=== PATIENT | female | born 1970 | race Caucasian/White ===

== ENCOUNTER 2020-08-31 20:14 | Inpatient (IN) | payer MEDICAID, OTHER, SELFPAY ==
[~2020-08-31] VITALS: Ht 162.6 cm; Wt 69.5 kg
--- NOTE | 2020-08-31 20:53 | NUR ---
Provider at bedside.
[2020-08-31] MEDS ORDERED: CHLORDIAZEPOXIDE 25 MG CAPSULE ONE (21:09)
[2020-08-31] MEDS ORDERED: CHLORDIAZEPOXIDE 25 MG CAPSULE PO PRN (21:30)
--- NOTE | 2020-08-31 21:30 | NUR ---
Pt.'s daughter called- this RN gave her update over the phone per pt. permission.
--- NOTE | 2020-08-31 21:56 | NUR ---
Completed MRI screen sheet and faxed to [phone]
[2020-08-31] MEDS ORDERED: PLEASE ENTER ALLERGIES MC SCH (22:00)
[2020-08-31] MEDS ORDERED: POLYETHYLENE GLYCOL 17 GM PACKET PO PRN (22:30)
[2020-08-31] MEDS ORDERED: DOCUSATE 100 MG CAPSULE PO PRN (22:30)
[2020-08-31] MEDS ORDERED: ONDANSETRON ODT 4 MG PO PRN (22:30)
[2020-08-31] MEDS ORDERED: LORazepam 2 MG/ML, 1ML IVPush PRN (22:30)
[2020-08-31] MEDS ORDERED: hydrALAzine 20 MG/ML, 1ML IVPush PRN (22:30)
[2020-08-31] MEDS ORDERED: BISACODYL 10 MG SUPP PR PRN (22:30)
[2020-08-31] MEDS ORDERED: morphine SULFATE 10 MG/ML, 1ML IVPush PRN (22:30)
[2020-08-31] MEDS ORDERED: PROMETHAZINE 25 MG/ML, 1ML IM PRN (22:30)
--- NOTE | 2020-08-31 22:33 | NUR ---
pt reports "i drink every other day a few glasses and get a little crazy on the weekends". [facility], appears comfortable. report called to beti jorge.
[2020-08-31] MEDS ORDERED: LORazepam 0.5MG TABLET PO PRN (23:00)
[2020-08-31] MEDS ORDERED: LORazepam 2 MG/ML, 1ML IV PRN ×5 (23:00)
[2020-08-31] MEDS ORDERED: LORazepam 1MG TABLET PO PRN ×3 (23:00)
--- NOTE | 2020-08-31 23:18 | NUR ---
Report called. Pt being transported to inpatient room.
[2020-08-31 23:30] VITALS: BP 124/83
[2020-08-31] MEDS ORDERED: LISI-420 PO (23:57)
[2020-08-31] MEDS ORDERED: SERT-237 PO (23:57)
[2020-09-01] MEDS: D5%-0.45% NACL 1,000 ML IV SCH ×2 (00:33→08:11)
[2020-09-01] MEDS: PANTOPRAZOLE 40 MG IV IVPush SCH ×2 (00:33→12:18)
[2020-09-01] MEDS: OXYcodone IR 5MG TABLET PO PRN (00:34)
[2020-09-01 01:05] VITALS: BP 114/75
[2020-09-01] MEDS: NICOTINE 7 MG/24 HR PATCH.TD24 TD SCH (01:13)
[2020-09-01] MEDS: LORazepam 1MG TABLET PO PRN ×4 (04:13→17:08)
[2020-09-01] MEDS: ONDANSETRON 2MG/ML, 2ML IVPush PRN (04:14)
[2020-09-01 05:30] LABS: CHLORIDE 100 mmol/L (98-107)
[2020-09-01 05:45] LABS: ALANINE AMINOTRANSFERASE 34 U/L (12-78); ALKALINE PHOSPHATASE 583 U/L (45-117); ANION GAP 8 mmol/L (5-15); BILIRUBIN,TOTAL 5.1 mg/dL (0.2-1.0); CALCIUM 7.2 mg/dL (8.5-10.1); CHOL/HDL RATIO 14.9; CHOLESTEROL, TOTAL 149 mg/dL (140-239); CREATININE 0.49 mg/dL (0.55-1.02); HDL CHOL % 7 % (28-40); HDL CHOLESTEROL (DIRECT) 10 mg/dL (40-60); LDL CHOLESTEROL,CALCULATED 102 mg/dL (54-169); LDL/HDL RATIO 10.2 (0.5-3.0); TOTAL PROTEIN 5.5 g/dL (6.4-8.2); TRIGLYCERIDES 185 mg/dL (50-200); VLDL CHOLESTEROL 37 mg/dL (0-25)
[2020-09-01 06:51] LABS: BASOPHILS % (AUTO) 1 % (0-1); EOSINOPHILS % (AUTO) 1 % (1-7); LYMPHOCYTES % (AUTO) 9 % (22-44); MEAN CORPUSCULAR HEMOGLOBIN 35.5 pg (27.0-34.8); MEAN CORPUSCULAR HGB CONC 34.5 g/dL (32.4-35.8); MEAN PLATELET VOLUME 9.8 fL (7.4-10.4); MONOCYTES % (AUTO) 6 % (2-9); NEUTROPHILS % (AUTO) 83 % (42-75); PLATELET COUNT 66 x10^3/uL (130-400); RED BLOOD COUNT 3.25 x10^6/uL (3.82-5.3); RED CELL DISTRIBUTION WIDTH 14.2 % (9.6-15.2)
[2020-09-01 07:20] LABS: ANISOCYTOSIS 1+; MD MORPH REVIEW ONLY; TARGET CELLS 1+
[2020-09-01 07:21] LABS: <PLATELET ESTIMATE> DECREASED; <PLT MORPHOLOGY> NORMAL PLT MORPH
[2020-09-01 07:33] VITALS: BP 133/86
[2020-09-01] MEDS: LISINOPRIL 10 MG TABLET PO SCH (08:11)
[2020-09-01] MEDS: SERTRALINE 50MG TABLET PO SCH (08:11)
[2020-09-01] MEDS: CEFTRIAXONE PMX 2GM/50ML 50 ML IVPB SCH (12:19)
[2020-09-01] MEDS ORDERED: MAGNESIUM SULFATE PMX 2GM/50ML 50 ML IV ONE (13:30)
[2020-09-01 13:42] LABS: INTERNATIONAL NORMALIZED RATIO 1.55 (0.93-1.1); PROTHROMBIN TIME 16.4 Seconds (9.6-11.5)
[2020-09-01 13:51] LABS: C-REACTIVE PROTEIN, QUANT 2.4 mg/dL (0.02-0.49)
[2020-09-01 14:30] VITALS: BP 107/72
[2020-09-01 19:47] VITALS: BP 123/86
[2020-09-02] MEDS: PANTOPRAZOLE 40 MG IV IVPush SCH ×2 (00:23→12:36)
[2020-09-02] MEDS: NICOTINE 7 MG/24 HR PATCH.TD24 TD SCH (00:24)
[2020-09-02 00:59] VITALS: BP 113/75
[2020-09-02 04:56] LABS: ANION GAP 7 mmol/L (5-15); CALCIUM 7.4 mg/dL (8.5-10.1); CHLORIDE 98 mmol/L (98-107); CREATININE 0.58 mg/dL (0.55-1.02)
[2020-09-02 06:53] VITALS: BP 110/74
[2020-09-02] MEDS ORDERED: LABETALOL 5MG/ML, 20ML IV PRN (08:00)
[2020-09-02] MEDS ORDERED: morphine SULFATE 10 MG/ML, 1ML IVPush PRN (08:00)
[2020-09-02] MEDS ORDERED: OXYcodone 5 MG/5 ML ORAL.SOL UDC PO PRN (08:00)
[2020-09-02] MEDS ORDERED: PROMETHAZINE 25 MG/ML, 1ML IVPush PRN (08:00)
[2020-09-02] MEDS ORDERED: ONDANSETRON 2MG/ML, 2ML IVPush PRN (08:00)
[2020-09-02] MEDS ORDERED: FENTANYL PF 100 MCG/2ML IV PRN (08:00)
[2020-09-02] MEDS ORDERED: hydrALAzine 20 MG/ML, 1ML IV PRN (08:00)
[2020-09-02] MEDS ORDERED: POTASSIUM PHOSPHATE 44 MEQ in SODIUM CHLORIDE 0.9% 500 ML IV ONE (08:30)
[2020-09-02] MEDS ORDERED: CHLORHEXIDINE 15 ML UDC ONE (08:30)
[2020-09-02] MEDS ORDERED: MIDAZOLAM 1 MG/ML, 2ML ONE (08:49)
[2020-09-02] MEDS ORDERED: FENTANYL PF 100 MCG/2ML ONE (08:49)
[2020-09-02] MEDS ORDERED: PROPOFOL 10 MG/ML, 20ML ONE (08:50)
[2020-09-02] MEDS: SERTRALINE 50MG TABLET PO SCH (10:50)
[2020-09-02] MEDS: LISINOPRIL 10 MG TABLET PO SCH (10:50)
[2020-09-02] MEDS: LACTULOSE 20 GM/30 ML UDC PO SCH ×2 (10:51→20:52)
[2020-09-02] MEDS: CEFTRIAXONE PMX 2GM/50ML 50 ML IVPB SCH (12:34)
[2020-09-02] MEDS: OXYcodone IR 5MG TABLET PO PRN (12:35)
[2020-09-02 13:01] VITALS: BP 114/75
[2020-09-02 20:00] VITALS: BP 106/71
[2020-09-03] MEDS: NICOTINE 7 MG/24 HR PATCH.TD24 TD SCH (01:40)
[2020-09-03 02:45] VITALS: BP 103/69
[2020-09-03] MEDS: PANTOPRAZOLE 40MG TABLET PO SCH ×2 (05:14→15:35)
[2020-09-03] MEDS: OXYcodone IR 5MG TABLET PO PRN (05:15)
[2020-09-03 06:20] LABS: BASOPHILS % (AUTO) 1 % (0-1); EOSINOPHILS % (AUTO) 2 % (1-7); LYMPHOCYTES % (AUTO) 12 % (22-44); MEAN CORPUSCULAR HEMOGLOBIN 36.4 pg (27.0-34.8); MEAN PLATELET VOLUME 10.6 fL (7.4-10.4); MONOCYTES % (AUTO) 9 % (2-9); NEUTROPHILS % (AUTO) 77 % (42-75); PLATELET COUNT 100 x10^3/uL (130-400); RED BLOOD COUNT 2.91 x10^6/uL (3.82-5.3); RED CELL DISTRIBUTION WIDTH 14.4 % (9.6-15.2)
[2020-09-03 06:23] LABS: INTERNATIONAL NORMALIZED RATIO 1.84 (0.93-1.1); PROTHROMBIN TIME 19.4 Seconds (9.6-11.5)
[2020-09-03 06:26] LABS: ALBUMIN 1.9 g/dL (3.4-5.0); ANION GAP 10 mmol/L (5-15); CALCIUM 7.4 mg/dL (8.5-10.1); CHLORIDE 101 mmol/L (98-107)
[2020-09-03 06:30] LABS: ALANINE AMINOTRANSFERASE 29 U/L (12-78); ALKALINE PHOSPHATASE 474 U/L (45-117); BILIRUBIN, DIRECT 7.1 mg/dL (0.1-0.2); BILIRUBIN,INDIRECT 1.6 mg/dL (0.0-2.0); BILIRUBIN,TOTAL 8.7 mg/dL (0.2-1.0); CREATININE 0.56 mg/dL (0.55-1.02); TOTAL PROTEIN 5.4 g/dL (6.4-8.2)
[2020-09-03 06:36] LABS: MD NO
[2020-09-03 08:40] VITALS: BP 100/67
[2020-09-03] MEDS: LACTULOSE 20 GM/30 ML UDC PO SCH ×2 (08:50→23:12)
[2020-09-03] MEDS: SERTRALINE 50MG TABLET PO SCH (08:50)
[2020-09-03] MEDS: LISINOPRIL 10 MG TABLET PO SCH (08:50)
[2020-09-03] MEDS ORDERED: POTASSIUM PHOSPHATE 44 MEQ in SODIUM CHLORIDE 0.9% 500 ML IV ONE (09:00)
[2020-09-03] MEDS: ONDANSETRON 2MG/ML, 2ML IVPush PRN (10:14)
[2020-09-03] MEDS ORDERED: LACTATED RINGERS 1,000 ML IVBOLUS ONE (10:30)
[2020-09-03] MEDS: CEFTRIAXONE PMX 2GM/50ML 50 ML IVPB SCH (12:41)
[2020-09-03 15:20] VITALS: BP 103/68
[2020-09-03 19:34] VITALS: BP 106/72
[2020-09-04] MEDS: NICOTINE 7 MG/24 HR PATCH.TD24 TD SCH ×2 (00:24→23:09)
[2020-09-04 00:28] VITALS: BP 98/66
[2020-09-04] MEDS: PANTOPRAZOLE 40MG TABLET PO SCH ×2 (05:34→17:16)
[2020-09-04 07:20] VITALS: BP 103/70
[2020-09-04] MEDS: SERTRALINE 50MG TABLET PO SCH (08:51)
[2020-09-04] MEDS: LACTULOSE 20 GM/30 ML UDC PO SCH ×2 (08:51→21:00)
[2020-09-04] MEDS: LISINOPRIL 10 MG TABLET PO SCH (08:51)
[2020-09-04 10:09] LABS: BASOPHILS % (AUTO) 2 % (0-1); EOSINOPHILS % (AUTO) 2 % (1-7); LYMPHOCYTES % (AUTO) 14 % (22-44); MEAN CORPUSCULAR HEMOGLOBIN 36.1 pg (27.0-34.8); MEAN CORPUSCULAR HGB CONC 34.7 g/dL (32.4-35.8); MONOCYTES % (AUTO) 12 % (2-9); NEUTROPHILS % (AUTO) 70 % (42-75); PLATELET COUNT 143 x10^3/uL (130-400); RED BLOOD COUNT 2.97 x10^6/uL (3.82-5.3); RED CELL DISTRIBUTION WIDTH 14.1 % (9.6-15.2)
[2020-09-04 10:15] LABS: ALBUMIN 1.9 g/dL (3.4-5.0); ANION GAP 8 mmol/L (5-15); CALCIUM 7.4 mg/dL (8.5-10.1); CHLORIDE 100 mmol/L (98-107); CREATININE 0.53 mg/dL (0.55-1.02)
[2020-09-04 10:30] LABS: MD MORPH REVIEW ONLY
[2020-09-04 10:31] LABS: ANISOCYTOSIS 1+; TARGET CELLS 1+
[2020-09-04 10:32] LABS: <PLATELET ESTIMATE> ADEQUATE; <PLT MORPHOLOGY> NORMAL PLT MORPH; POLYCHROMASIA 1+
[2020-09-04 12:12] VITALS: BP 118/71
[2020-09-04] MEDS: CEFTRIAXONE PMX 2GM/50ML 50 ML IVPB SCH (13:18)
[2020-09-04] MEDS ORDERED: LIDOCAINE 1%, 10ML ONE (16:02)
[2020-09-04 20:25] VITALS: BP 106/71
[2020-09-04] MEDS: OXYcodone IR 5MG TABLET PO PRN (23:08)
[2020-09-05 02:18] VITALS: BP 100/69
[2020-09-05 05:59] LABS: BASOPHILS % (AUTO) 1 % (0-1); EOSINOPHILS % (AUTO) 3 % (1-7); LYMPHOCYTES % (AUTO) 15 % (22-44); MEAN CORPUSCULAR HEMOGLOBIN 36.1 pg (27.0-34.8); MEAN CORPUSCULAR HGB CONC 34.6 g/dL (32.4-35.8); MEAN PLATELET VOLUME 9.6 fL (7.4-10.4); MONOCYTES % (AUTO) 15 % (2-9); NEUTROPHILS % (AUTO) 67 % (42-75); PLATELET COUNT 187 x10^3/uL (130-400); RED BLOOD COUNT 3.02 x10^6/uL (3.82-5.3); RED CELL DISTRIBUTION WIDTH 14.2 % (9.6-15.2)
[2020-09-05 06:07] LABS: ALBUMIN 1.9 g/dL (3.4-5.0); ANION GAP 9 mmol/L (5-15); CALCIUM 7.6 mg/dL (8.5-10.1); CHLORIDE 99 mmol/L (98-107); CREATININE 0.46 mg/dL (0.55-1.02)
[2020-09-05] MEDS: PANTOPRAZOLE 40MG TABLET PO SCH ×2 (06:09→16:51)
[2020-09-05 06:40] LABS: MD SCAN
[2020-09-05 07:00] VITALS: BP 108/74
[2020-09-05] MEDS: LISINOPRIL 10 MG TABLET PO SCH (09:00)
[2020-09-05] MEDS: LACTULOSE 20 GM/30 ML UDC PO SCH ×2 (09:00→21:00)
[2020-09-05] MEDS: SERTRALINE 50MG TABLET PO SCH (09:00)
[2020-09-05] MEDS: ONDANSETRON 2MG/ML, 2ML IVPush PRN (09:11)
[2020-09-05] MEDS: CEFTRIAXONE PMX 2GM/50ML 50 ML IVPB SCH (15:34)
[2020-09-05] MEDS ORDERED: POTASSIUM CHLORIDE 20 MEQ TAB.ER.PRT PO ONE (16:30)
[2020-09-05 20:06] VITALS: BP 116/69
[2020-09-05 20:10] VITALS: BP 121/63
[2020-09-05] MEDS: NICOTINE 7 MG/24 HR PATCH.TD24 TD SCH (23:06)
[2020-09-06 02:05] VITALS: BP 118/68
[2020-09-06] MEDS: PANTOPRAZOLE 40MG TABLET PO SCH (06:39)
[2020-09-06 06:50] VITALS: BP 109/73
[2020-09-06] MEDS: LISINOPRIL 10 MG TABLET PO SCH (08:17)
[2020-09-06] MEDS: SERTRALINE 50MG TABLET PO SCH (08:17)
[2020-09-06] MEDS: LACTULOSE 20 GM/30 ML UDC PO SCH (08:17)
[2020-09-06] MEDS: OXYcodone IR 5MG TABLET PO PRN (08:20)
[2020-09-06 12:12] VITALS: BP 118/91
[2020-09-06] MEDS ORDERED: LACT20SO13 PO (12:18)
[2020-09-06] MEDS ORDERED: PANT40TA6 PO (12:18)
[2020-09-06] MEDS ORDERED: LORA-445 PO (12:18)
[2020-09-06] MEDS ORDERED: LISI-420 PO (12:18)
[2020-09-06] MEDS ORDERED: TRAM50TA2 PO (12:18)
[2020-09-06] MEDS: CEFTRIAXONE PMX 2GM/50ML 50 ML IVPB SCH (12:32)
== END 2020-09-06 14:20 | disposition home or self-care (01) | DRG 444 ==
LOC: ED 21:32 → EDIP 22:19 → 4NE 09-01 → DCLOUNGE 09-06 14:05
PROVIDERS: ADMIT Internal Medicine; ATTEND Internal Medicine
PROC: 0DB98ZX Excision of Duodenum, Via Natural or Artificial Opening Endoscopic, Diagnostic (ICD-10-PCS; principal; 2020-09-02 09:30)
DX: K80.62 Calculus of gallbladder and bile duct with acute cholecystitis without obstruction (principal); K85.20 Alcohol induced acute pancreatitis without necrosis or infection; F10.239 Alcohol dependence with withdrawal, unspecified; K92.1 Melena; K76.6 Portal hypertension; Z20.822 Contact with and (suspected) exposure to COVID-19; D64.9 Anemia, unspecified; D69.6 Thrombocytopenia, unspecified; E87.6 Hypokalemia; F17.210 Nicotine dependence, cigarettes, uncomplicated; F32.9 Major depressive disorder, single episode, unspecified; G89.29 Other chronic pain; I10 Essential (primary) hypertension; K21.00 Gastro-esophageal reflux disease with esophagitis, without bleeding; K29.20 Alcoholic gastritis without bleeding; J45.909 Unspecified asthma, uncomplicated; D72.829 Elevated white blood cell count, unspecified; K31.89 Other diseases of stomach and duodenum; K70.11 Alcoholic hepatitis with ascites; K70.31 Alcoholic cirrhosis of liver with ascites; Z82.49 Family history of ischemic heart disease and other diseases of the circulatory system; Z79.899 Other long term (current) drug therapy; Z79.891 Long term (current) use of opiate analgesic; Z79.01 Long term (current) use of anticoagulants; Z80.3 Family history of malignant neoplasm of breast; Z88.7 Allergy status to serum and vaccine; Z88.5 Allergy status to narcotic agent
CPT/HCPCS: 36415; 99285; J3490; 74181; 76705; 78227; 80053; 80061; 80069; 80074; 80076; 82140; 82977; 83036; 83690; 83735; 84100; 84443; 84703; 85025; 85610; 86140; 87635; 88305; 88312; G0378; J0696; J2250; J2405; J2704; J3010; A9537; C9113; J3475; J7040; J7120

== ENCOUNTER 2020-09-12 12:20 | Inpatient (IN) | payer MEDICAID, OTHER ==
[~2020-09-12] VITALS: Ht 162.6 cm; Wt 57.6 kg
[~2020-09-12 12:20] MED LIST: LACT20SO13 PO; LISI20TA21 PO; LORA-445 PO; PANT40TA6 PO; SERT-237 PO; TRAM50TA2 PO
--- NOTE | 2020-09-12 12:41 | NUR ---
PT SENT BY PCP- CHIEF COMPLAINT OF WORSENING JAUNDICE, ABD PAIN, ABD DISTENTION, N/V.
--- NOTE | 2020-09-12 13:06 | NUR ---
ULTRASOUND AT BEDSIDE
--- NOTE | 2020-09-12 13:12 | NUR ---
ULTRASOUND AT BEDSIDE
[2020-09-12 13:17] LABS: BASOPHILS % (AUTO) 1 % (0-1); EOSINOPHILS % (AUTO) 1 % (1-7); LYMPHOCYTES % (AUTO) 10 % (22-44); MEAN CORPUSCULAR HEMOGLOBIN 35.6 pg (27.0-34.8); MEAN CORPUSCULAR HGB CONC 34.2 g/dL (32.4-35.8); MEAN PLATELET VOLUME 7.5 fL (7.4-10.4); MONOCYTES % (AUTO) 7 % (2-9); NEUTROPHILS % (AUTO) 81 % (42-75); PLATELET COUNT 459 x10^3/uL (130-400); RED BLOOD COUNT 3.26 x10^6/uL (3.82-5.3); RED CELL DISTRIBUTION WIDTH 14.9 % (9.6-15.2)
[2020-09-12 13:20] LABS: MD NO
[2020-09-12 13:21] LABS: ALANINE AMINOTRANSFERASE 54 U/L (12-78); ALBUMIN 1.8 g/dL (3.4-5.0); ANION GAP 8 mmol/L (5-15); CHLORIDE 95 mmol/L (98-107); CREATININE 1.05 mg/dL (0.55-1.02)
[2020-09-12 13:23] LABS: ALKALINE PHOSPHATASE 403 U/L (45-117); BILIRUBIN,TOTAL 12.4 mg/dL (0.2-1.0); TOTAL PROTEIN 6.2 g/dL (6.4-8.2)
[2020-09-12 14:00] LABS: INTERNATIONAL NORMALIZED RATIO 1.64 (0.93-1.1); PROTHROMBIN TIME 17.3 Seconds (9.6-11.5)
[2020-09-12] MEDS ORDERED: POTASSIUM CHLORIDE 40 MEQ in SODIUM CHLORIDE 0.9% 500 ML IV ONE (14:00)
--- NOTE | 2020-09-12 14:21 | NUR ---
[facility]
[2020-09-12] MEDS ORDERED: PIPERACILLIN/TAZO/PMX 3.375GM 50 ML ONE (14:29)
[2020-09-12] MEDS ORDERED: SODIUM CHLORIDE 0.9% 1,000ML IVBOLUS ONE (14:30)
[2020-09-12] MEDS ORDERED: PIPERACILLIN/TAZO/PMX 3.375GM 50 ML IVPB ONE (14:30)
[2020-09-12] MEDS ORDERED: LIDOCAINE 1%, 10ML ONE (14:38)
--- NOTE | 2020-09-12 14:50 | NUR ---
PT TRANSPORTED TO IR.
--- NOTE | 2020-09-12 16:00 | NUR ---
Pt resting in bed, call light in reach. Urine collected
[2020-09-12 16:31] LABS: MICROSCOPIC INDICATED
--- NOTE | 2020-09-12 17:59 | NUR ---
REPOT TO Chad GIBSON
[2020-09-12] MEDS ORDERED: LORazepam 0.5MG TABLET PO PRN (18:00)
[2020-09-12] MEDS ORDERED: POLYETHYLENE GLYCOL 17 GM PACKET PO PRN (18:00)
[2020-09-12] MEDS ORDERED: NS + 20MEQ KCL 1,000 ML IV SCH (18:00)
[2020-09-12] MEDS ORDERED: BISACODYL 10 MG SUPP PR PRN (18:00)
[2020-09-12 18:39] VITALS: BP 105/72
[2020-09-12 20:18] VITALS: BP 101/59
[2020-09-12] MEDS: LACTULOSE 20 GM/30 ML UDC PO SCH (21:24)
[2020-09-12] MEDS: CEFTRIAXONE PMX 1GM/50ML 50 ML IV SCH (21:33)
[2020-09-13 00:34] VITALS: BP 104/73
[2020-09-13] MEDS: PANTOPRAZOLE 40MG TABLET PO SCH ×2 (05:24→16:52)
[2020-09-13 05:27] LABS: BASOPHILS % (AUTO) 1 % (0-1); EOSINOPHILS % (AUTO) 2 % (1-7); LYMPHOCYTES % (AUTO) 15 % (22-44); MEAN CORPUSCULAR HGB CONC 33.7 g/dL (32.4-35.8); MEAN PLATELET VOLUME 7.5 fL (7.4-10.4); MONOCYTES % (AUTO) 6 % (2-9); NEUTROPHILS % (AUTO) 77 % (42-75); PLATELET COUNT 447 x10^3/uL (130-400); RED BLOOD COUNT 3.31 x10^6/uL (3.82-5.3); RED CELL DISTRIBUTION WIDTH 15.1 % (9.6-15.2)
[2020-09-13 05:28] LABS: MD NO
[2020-09-13 05:33] LABS: ANION GAP 8 mmol/L (5-15); CALCIUM 7.5 mg/dL (8.5-10.1); CHLORIDE 103 mmol/L (98-107); CREATININE 0.66 mg/dL (0.55-1.02)
[2020-09-13 07:18] VITALS: BP 110/78
[2020-09-13] MEDS: LISINOPRIL 10 MG TABLET PO SCH (08:31)
[2020-09-13] MEDS: LACTOBACILLUS CHEW TABLET PO SCH ×3 (08:31→20:52)
[2020-09-13] MEDS: SODIUM CHLORIDE 0.9% 1,000 ML IV SCH (08:31)
[2020-09-13] MEDS: LACTULOSE 20 GM/30 ML UDC PO SCH ×2 (08:31→20:48)
[2020-09-13] MEDS: SERTRALINE 50MG TABLET PO SCH (08:32)
[2020-09-13] MEDS: SENNA/DOCUSATE TABLET PO SCH (08:35)
[2020-09-13 12:31] VITALS: BP 109/75
[2020-09-13 19:44] VITALS: BP 109/72
[2020-09-13] MEDS: CEFTRIAXONE PMX 1GM/50ML 50 ML IV SCH (20:52)
[2020-09-14] MEDS: SODIUM CHLORIDE 0.9% 1,000 ML IV SCH ×2 (00:43→17:05)
[2020-09-14 01:23] VITALS: BP 107/71
[2020-09-14] MEDS: PANTOPRAZOLE 40MG TABLET PO SCH ×2 (05:18→17:05)
[2020-09-14 08:19] VITALS: BP 123/80
[2020-09-14] MEDS: LISINOPRIL 10 MG TABLET PO SCH (08:28)
[2020-09-14] MEDS: LACTULOSE 20 GM/30 ML UDC PO SCH ×2 (08:28→20:39)
[2020-09-14] MEDS: SERTRALINE 50MG TABLET PO SCH (08:28)
[2020-09-14] MEDS: SENNA/DOCUSATE TABLET PO SCH (08:28)
[2020-09-14 08:59] LABS: BASOPHILS % (AUTO) 1 % (0-1); EOSINOPHILS % (AUTO) 2 % (1-7); LYMPHOCYTES % (AUTO) 11 % (22-44); MEAN CORPUSCULAR HEMOGLOBIN 35.2 pg (27.0-34.8); MEAN CORPUSCULAR HGB CONC 33.9 g/dL (32.4-35.8); MEAN PLATELET VOLUME 7.4 fL (7.4-10.4); MONOCYTES % (AUTO) 7 % (2-9); NEUTROPHILS % (AUTO) 79 % (42-75); PLATELET COUNT 410 x10^3/uL (130-400); RED BLOOD COUNT 3.02 x10^6/uL (3.82-5.3); RED CELL DISTRIBUTION WIDTH 15.1 % (9.6-15.2)
[2020-09-14 09:06] LABS: ALANINE AMINOTRANSFERASE 50 U/L (12-78); ALBUMIN 1.5 g/dL (3.4-5.0); ANION GAP 9 mmol/L (5-15); CALCIUM 7.5 mg/dL (8.5-10.1); CHLORIDE 103 mmol/L (98-107); CREATININE 0.56 mg/dL (0.55-1.02); IRON LEVEL 87 mcg/dL (50-170); TOTAL IRON BINDING CAPACITY 76 mcg/dL (250-450)
[2020-09-14 09:07] LABS: % IRON SATURATION 114 % (20-55); MD NO
[2020-09-14 09:09] LABS: ALKALINE PHOSPHATASE 355 U/L (45-117); BILIRUBIN,TOTAL 10.1 mg/dL (0.2-1.0); TOTAL PROTEIN 5.4 g/dL (6.4-8.2)
[2020-09-14] MEDS ORDERED: POTASSIUM CHLORIDE 20 MEQ TAB.ER.PRT PO ONE (11:00)
[2020-09-14 12:55] VITALS: BP 117/78
[2020-09-14] MEDS: CEFTRIAXONE PMX 2GM/50ML 50 ML IVPB SCH (13:34)
[2020-09-14 19:28] VITALS: BP 104/68
[2020-09-15 01:17] VITALS: BP 104/68
[2020-09-15 05:26] LABS: BASOPHILS % (AUTO) 1 % (0-1); EOSINOPHILS % (AUTO) 2 % (1-7); LYMPHOCYTES % (AUTO) 11 % (22-44); MEAN CORPUSCULAR HEMOGLOBIN 35.1 pg (27.0-34.8); MEAN CORPUSCULAR HGB CONC 34.1 g/dL (32.4-35.8); MONOCYTES % (AUTO) 7 % (2-9); NEUTROPHILS % (AUTO) 79 % (42-75); PLATELET COUNT 412 x10^3/uL (130-400); RED BLOOD COUNT 3.05 x10^6/uL (3.82-5.3); RED CELL DISTRIBUTION WIDTH 15.6 % (9.6-15.2)
[2020-09-15 05:34] LABS: MD NO
[2020-09-15 05:35] LABS: ALBUMIN 1.5 g/dL (3.4-5.0); ANION GAP 9 mmol/L (5-15); CALCIUM 7.8 mg/dL (8.5-10.1); CHLORIDE 103 mmol/L (98-107)
[2020-09-15 05:40] LABS: ALANINE AMINOTRANSFERASE 56 U/L (12-78); ALKALINE PHOSPHATASE 374 U/L (45-117); CREATININE 0.56 mg/dL (0.55-1.02); TOTAL PROTEIN 5.6 g/dL (6.4-8.2)
[2020-09-15] MEDS: PANTOPRAZOLE 40MG TABLET PO SCH ×2 (06:12→16:24)
[2020-09-15] MEDS ORDERED: POTASSIUM CHLORIDE 40 MEQ in SODIUM CHLORIDE 0.9% 500 ML IV ONE (07:00)
[2020-09-15] MEDS ORDERED: POTASSIUM CHLORIDE 20 MEQ TAB.ER.PRT PO ONE (07:00)
[2020-09-15 07:31] VITALS: BP 115/78
[2020-09-15] MEDS: SERTRALINE 50MG TABLET PO SCH (07:34)
[2020-09-15] MEDS: LISINOPRIL 10 MG TABLET PO SCH (07:34)
[2020-09-15] MEDS: SENNA/DOCUSATE TABLET PO SCH (07:35)
[2020-09-15] MEDS: LACTULOSE 20 GM/30 ML UDC PO SCH ×2 (07:35→19:32)
[2020-09-15] MEDS: SODIUM CHLORIDE 0.9% 1,000 ML IV SCH (10:00)
[2020-09-15 12:18] VITALS: BP 126/79
[2020-09-15] MEDS: CEFTRIAXONE PMX 2GM/50ML 50 ML IVPB SCH (13:29)
[2020-09-15 19:11] VITALS: BP 118/73
[2020-09-16 01:34] VITALS: BP 128/94
[2020-09-16] MEDS: PANTOPRAZOLE 40MG TABLET PO SCH ×2 (06:09→16:32)
[2020-09-16] MEDS: SODIUM CHLORIDE 0.9% 1,000 ML IV SCH (07:00)
[2020-09-16 07:10] VITALS: BP 114/76
[2020-09-16] MEDS: LACTULOSE 20 GM/30 ML UDC PO SCH ×2 (07:12→19:28)
[2020-09-16] MEDS: SENNA/DOCUSATE TABLET PO SCH (07:13)
[2020-09-16] MEDS: SERTRALINE 50MG TABLET PO SCH (07:13)
[2020-09-16] MEDS: LISINOPRIL 10 MG TABLET PO SCH (07:14)
[2020-09-16 08:44] LABS: BASOPHILS % (AUTO) 1 % (0-1); EOSINOPHILS % (AUTO) 2 % (1-7); LYMPHOCYTES % (AUTO) 11 % (22-44); MEAN CORPUSCULAR HEMOGLOBIN 35.5 pg (27.0-34.8); MEAN CORPUSCULAR HGB CONC 34.3 g/dL (32.4-35.8); MEAN PLATELET VOLUME 7.5 fL (7.4-10.4); MONOCYTES % (AUTO) 9 % (2-9); NEUTROPHILS % (AUTO) 78 % (42-75); PLATELET COUNT 408 x10^3/uL (130-400); RED BLOOD COUNT 2.98 x10^6/uL (3.82-5.3); RED CELL DISTRIBUTION WIDTH 15.2 % (9.6-15.2)
[2020-09-16 08:48] LABS: ANION GAP 8 mmol/L (5-15); CALCIUM 7.5 mg/dL (8.5-10.1); CHLORIDE 106 mmol/L (98-107)
[2020-09-16 09:15] LABS: MD SCAN
[2020-09-16] MEDS: CEFTRIAXONE PMX 2GM/50ML 50 ML IVPB SCH (13:32)
[2020-09-16 14:25] VITALS: BP 122/74
[2020-09-16] MEDS: ONDANSETRON ODT 4 MG PO PRN (16:42)
[2020-09-16] MEDS ORDERED: ALBUMIN HUMAN 25% 100 ML IV PRN (17:30)
[2020-09-16 19:05] VITALS: BP 113/75
[2020-09-17 01:32] VITALS: BP 102/65
[2020-09-17] MEDS: SODIUM CHLORIDE 0.9% 1,000 ML IV SCH ×2 (02:11→17:09)
[2020-09-17] MEDS: PANTOPRAZOLE 40MG TABLET PO SCH ×2 (05:07→16:48)
[2020-09-17 05:40] LABS: MEAN CORPUSCULAR HEMOGLOBIN 35.2 pg (27.0-34.8); MEAN CORPUSCULAR HGB CONC 34.2 g/dL (32.4-35.8); MEAN PLATELET VOLUME 7.3 fL (7.4-10.4); PLATELET COUNT 388 x10^3/uL (130-400); RED BLOOD COUNT 2.88 x10^6/uL (3.82-5.3); RED CELL DISTRIBUTION WIDTH 15.1 % (9.6-15.2)
[2020-09-17 05:52] LABS: ANION GAP 7 mmol/L (5-15); CALCIUM 7.5 mg/dL (8.5-10.1); CHLORIDE 106 mmol/L (98-107)
[2020-09-17 05:58] LABS: ALANINE AMINOTRANSFERASE 57 U/L (12-78); ALBUMIN 1.5 g/dL (3.4-5.0); ALKALINE PHOSPHATASE 344 U/L (45-117); BILIRUBIN,TOTAL 9.1 mg/dL (0.2-1.0); CREATININE 0.51 mg/dL (0.55-1.02); TOTAL PROTEIN 5.3 g/dL (6.4-8.2)
[2020-09-17 06:45] LABS: MD YES
[2020-09-17 06:47] LABS: BAND#(MANUAL) 0.25 x10^3/uL; BANDS%(MANUAL) 1 % (0-7); BASOS#(MANUAL) 0.25 x10^3/uL (0-0.1); BASOS% (MANUAL) 1 % (0-1); EOS#(MANUAL) 0.75 x10^3/uL (0.0-0.4); EOS% (MANUAL) 3 % (1-7); MONOS% (MANUAL) 8 % (2-9)
[2020-09-17 06:49] LABS: LYMPH#(MANUAL) 1.75 x10^3/uL (1-3.4); LYMPHS% (MANUAL) 7 % (22-44); SEGS% (MANUAL) 80 % (42-75)
[2020-09-17 06:50] LABS: ANISOCYTOSIS 1+; POLYCHROMASIA 1+; TARGET CELLS 1+
[2020-09-17 06:51] LABS: <PLATELET ESTIMATE> ADEQUATE; <PLT MORPHOLOGY> NORMAL PLT MORPH
[2020-09-17] MEDS ORDERED: POTASSIUM CHLORIDE 20 MEQ TAB.ER.PRT PO ONE (07:00)
[2020-09-17 07:16] VITALS: BP 122/82
[2020-09-17] MEDS: LACTULOSE 20 GM/30 ML UDC PO SCH ×2 (07:18→20:56)
[2020-09-17] MEDS: LISINOPRIL 10 MG TABLET PO SCH (07:18)
[2020-09-17] MEDS: SERTRALINE 50MG TABLET PO SCH (07:18)
[2020-09-17] MEDS: SENNA/DOCUSATE TABLET PO SCH (07:18)
[2020-09-17 07:41] VITALS: BP 116/74
[2020-09-17] MEDS ORDERED: OMNIPAQUE 350 MG/ML, 100ML BOTTLE ONE (09:00)
[2020-09-17] MEDS ORDERED: LIDOCAINE 1%, 10ML ONE (09:43)
[2020-09-17] MEDS: DOXYCYCLINE 100 MG in DEXTROSE 5% 250 ML IV SCH ×2 (11:00→22:48)
[2020-09-17 13:18] VITALS: BP 115/79
[2020-09-17] MEDS: AMPICILLIN/SULBACTAM 3 GM in SODIUM CHLORIDE 0.9% 100 ML IV SCH ×2 (13:25→20:56)
[2020-09-17] MEDS ORDERED: ALBUMIN HUMAN 25% 100 ML IV ONE (15:30)
[2020-09-17 19:30] VITALS: BP 100/65
[2020-09-18] VITALS: BP 111/70
[2020-09-18] MEDS: AMPICILLIN/SULBACTAM 3 GM in SODIUM CHLORIDE 0.9% 100 ML IV SCH ×3 (05:01→20:42)
[2020-09-18] MEDS: PANTOPRAZOLE 40MG TABLET PO SCH ×2 (05:04→16:47)
[2020-09-18 05:31] LABS: BASOPHILS % (AUTO) 1 % (0-1); EOSINOPHILS % (AUTO) 2 % (1-7); LYMPHOCYTES % (AUTO) 11 % (22-44); MEAN CORPUSCULAR HEMOGLOBIN 35.5 pg (27.0-34.8); MEAN CORPUSCULAR HGB CONC 34.4 g/dL (32.4-35.8); MEAN PLATELET VOLUME 7.2 fL (7.4-10.4); MONOCYTES % (AUTO) 8 % (2-9); NEUTROPHILS % (AUTO) 79 % (42-75); PLATELET COUNT 329 x10^3/uL (130-400); RED BLOOD COUNT 2.86 x10^6/uL (3.82-5.3)
[2020-09-18 05:35] LABS: ALBUMIN 1.8 g/dL (3.4-5.0); ANION GAP 8 mmol/L (5-15); CALCIUM 7.4 mg/dL (8.5-10.1); CHLORIDE 107 mmol/L (98-107)
[2020-09-18 05:39] LABS: ALANINE AMINOTRANSFERASE 49 U/L (12-78); ALKALINE PHOSPHATASE 323 U/L (45-117); BILIRUBIN,TOTAL 7.9 mg/dL (0.2-1.0); CREATININE 0.46 mg/dL (0.55-1.02); TOTAL PROTEIN 5.1 g/dL (6.4-8.2)
[2020-09-18 06:44] LABS: MD SCAN
[2020-09-18] MEDS ORDERED: VANCOMYCIN 50 MG/ML ORAL SUSP PO SCH (07:00)
[2020-09-18] MEDS ORDERED: POTASSIUM CHLORIDE 40 MEQ in SODIUM CHLORIDE 0.9% 500 ML IV ONE (07:00)
[2020-09-18] MEDS ORDERED: POTASSIUM CHLORIDE 20 MEQ TAB.ER.PRT PO ONE (07:00)
[2020-09-18] MEDS: POTASSIUM CHLORIDE 20 MEQ TAB.ER.PRT PO SCH (07:29)
[2020-09-18 07:36] VITALS: BP 105/69
[2020-09-18] MEDS: SERTRALINE 50MG TABLET PO SCH (07:48)
[2020-09-18] MEDS: LISINOPRIL 10 MG TABLET PO SCH (07:48)
[2020-09-18] MEDS: SENNA/DOCUSATE TABLET PO SCH (08:09)
[2020-09-18] MEDS: LACTULOSE 20 GM/30 ML UDC PO SCH ×2 (08:10→20:42)
[2020-09-18] MEDS: DOXYCYCLINE 100MG TABLET PO SCH ×2 (09:55→20:42)
[2020-09-18 10:50] LABS: CLOSTRIDIUM DIFFICILE ANTIGEN NEGATIVE; CLOSTRIDIUM DIFFICILE TOXIN NEGATIVE (Negative)
[2020-09-18] MEDS: SODIUM CHLORIDE 0.9% 1,000 ML IV SCH (12:26)
[2020-09-18 12:53] VITALS: BP 103/70
[2020-09-18 19:16] VITALS: BP 100/63
[2020-09-18 19:18] VITALS: BP 100/63
[2020-09-19 00:55] VITALS: BP 112/74
[2020-09-19] MEDS: SODIUM CHLORIDE 0.9% 1,000 ML IV SCH ×2 (04:00→22:32)
[2020-09-19] MEDS: AMPICILLIN/SULBACTAM 3 GM in SODIUM CHLORIDE 0.9% 100 ML IV SCH (04:30)
[2020-09-19] MEDS: PANTOPRAZOLE 40MG TABLET PO SCH ×2 (05:21→17:03)
[2020-09-19 05:36] LABS: ALBUMIN 1.6 g/dL (3.4-5.0); ANION GAP 7 mmol/L (5-15); CALCIUM 7.9 mg/dL (8.5-10.1); CHLORIDE 109 mmol/L (98-107)
[2020-09-19 05:41] LABS: ALANINE AMINOTRANSFERASE 53 U/L (12-78); ALKALINE PHOSPHATASE 331 U/L (45-117); BILIRUBIN,TOTAL 8.2 mg/dL (0.2-1.0); CREATININE 0.44 mg/dL (0.55-1.02); TOTAL PROTEIN 5.2 g/dL (6.4-8.2)
[2020-09-19 05:44] LABS: MEAN CORPUSCULAR HEMOGLOBIN 35.4 pg (27.0-34.8); MEAN PLATELET VOLUME 7.5 fL (7.4-10.4); PLATELET COUNT 332 x10^3/uL (130-400); RED BLOOD COUNT 2.96 x10^6/uL (3.82-5.3); RED CELL DISTRIBUTION WIDTH 16.2 % (9.6-15.2)
[2020-09-19 06:37] LABS: MD YES
[2020-09-19 06:39] LABS: ANISOCYTOSIS 1+; EOS#(MANUAL) 0.51 x10^3/uL (0.0-0.4); EOS% (MANUAL) 2 % (1-7); LYMPH#(MANUAL) 1.03 x10^3/uL (1-3.4); LYMPHS% (MANUAL) 4 % (22-44); MONOS#(MANUAL) 2.83 x10^3/uL (0.3-2.7); MONOS% (MANUAL) 11 % (2-9); POLYCHROMASIA 1+; SEG#(MANUAL) 21.33 x10^3/uL (1.8-6.8); SEGS% (MANUAL) 83 % (42-75)
[2020-09-19 06:40] LABS: <PLATELET ESTIMATE> ADEQUATE; <PLT MORPHOLOGY> NORMAL PLT MORPH
[2020-09-19 06:41] LABS: TARGET CELLS 1+
[2020-09-19 07:07] VITALS: BP 110/70
[2020-09-19] MEDS: POTASSIUM CHLORIDE 20 MEQ TAB.ER.PRT PO SCH (08:02)
[2020-09-19] MEDS: SERTRALINE 50MG TABLET PO SCH (08:02)
[2020-09-19] MEDS: DOXYCYCLINE 100MG TABLET PO SCH ×2 (08:02→20:26)
[2020-09-19] MEDS: LISINOPRIL 10 MG TABLET PO SCH (08:03)
[2020-09-19] MEDS: SENNA/DOCUSATE TABLET PO SCH (08:03)
[2020-09-19] MEDS: LACTULOSE 20 GM/30 ML UDC PO SCH ×2 (08:03→20:26)
[2020-09-19] MEDS: PIPERACILLIN/TAZO/PMX 3.375GM 50 ML IV SCH ×2 (11:50→18:35)
[2020-09-19 12:18] LABS: HCT (SEDRATE) 31.7 % (34.6-47.8)
[2020-09-19 13:28] VITALS: BP 120/79
[2020-09-19 13:54] LABS: INTERNATIONAL NORMALIZED RATIO 1.97 (0.93-1.1); PROTHROMBIN TIME 20.8 Seconds (9.6-11.5)
[2020-09-19 19:18] VITALS: BP 102/67
[2020-09-20 00:54] VITALS: BP 112/75
[2020-09-20] MEDS: PIPERACILLIN/TAZO/PMX 3.375GM 50 ML IV SCH ×3 (03:01→19:39)
[2020-09-20] MEDS: PANTOPRAZOLE 40MG TABLET PO SCH ×2 (04:54→17:21)
[2020-09-20 05:57] LABS: MEAN CORPUSCULAR HEMOGLOBIN 34.9 pg (27.0-34.8); MEAN CORPUSCULAR HGB CONC 33.8 g/dL (32.4-35.8); MEAN PLATELET VOLUME 7.4 fL (7.4-10.4); PLATELET COUNT 310 x10^3/uL (130-400); RED BLOOD COUNT 2.97 x10^6/uL (3.82-5.3); RED CELL DISTRIBUTION WIDTH 16.6 % (9.6-15.2)
[2020-09-20 06:04] LABS: MD YES
[2020-09-20 06:08] LABS: ALANINE AMINOTRANSFERASE 51 U/L (12-78); ALBUMIN 1.6 g/dL (3.4-5.0); ANION GAP 9 mmol/L (5-15); CALCIUM 7.6 mg/dL (8.5-10.1); CHLORIDE 110 mmol/L (98-107); CREATININE 0.48 mg/dL (0.55-1.02)
[2020-09-20 06:10] LABS: ALKALINE PHOSPHATASE 318 U/L (45-117); BILIRUBIN,TOTAL 8.3 mg/dL (0.2-1.0); TOTAL PROTEIN 5.2 g/dL (6.4-8.2)
[2020-09-20 06:20] LABS: ANISOCYTOSIS 1+; EOS#(MANUAL) 0.54 x10^3/uL (0.0-0.4); EOS% (MANUAL) 2 % (1-7); LYMPH#(MANUAL) 1.61 x10^3/uL (1-3.4); LYMPHS% (MANUAL) 6 % (22-44); MONOS#(MANUAL) 2.15 x10^3/uL (0.3-2.7); MONOS% (MANUAL) 8 % (2-9); POLYCHROMASIA 1+; SEGS% (MANUAL) 84 % (42-75); TARGET CELLS 1+
[2020-09-20 06:21] LABS: <PLATELET ESTIMATE> ADEQUATE; <PLT MORPHOLOGY> NORMAL PLT MORPH
[2020-09-20 07:23] VITALS: BP 115/78
[2020-09-20] MEDS: SENNA/DOCUSATE TABLET PO SCH (07:56)
[2020-09-20] MEDS: DOXYCYCLINE 100MG TABLET PO SCH ×2 (07:56→19:40)
[2020-09-20] MEDS: SERTRALINE 50MG TABLET PO SCH (07:57)
[2020-09-20] MEDS: POTASSIUM CHLORIDE 20 MEQ TAB.ER.PRT PO SCH (07:57)
[2020-09-20] MEDS: LISINOPRIL 10 MG TABLET PO SCH (07:57)
[2020-09-20] MEDS: LACTULOSE 20 GM/30 ML UDC PO SCH ×2 (07:58→19:39)
[2020-09-20] MEDS ORDERED: POTASSIUM CHLORIDE 40 MEQ in SODIUM CHLORIDE 0.9% 500 ML IV ONE (09:00)
[2020-09-20] MEDS ORDERED: MAGNESIUM SULFATE PMX 2GM/50ML 50 ML IV ONE (09:00)
[2020-09-20 13:35] VITALS: BP 101/72
[2020-09-20 18:48] VITALS: BP 107/68
[2020-09-21] VITALS (18 sets, daily range): BP systolic 94–122; BP diastolic 64–83
[2020-09-21] MEDS: PIPERACILLIN/TAZO/PMX 3.375GM 50 ML IV SCH ×3 (04:02→20:11)
[2020-09-21] MEDS: PANTOPRAZOLE 40MG TABLET PO SCH ×2 (04:47→16:00)
[2020-09-21 05:41] LABS: MEAN CORPUSCULAR HEMOGLOBIN 35.2 pg (27.0-34.8); MEAN CORPUSCULAR HGB CONC 33.6 g/dL (32.4-35.8); PLATELET COUNT 322 x10^3/uL (130-400); RED BLOOD COUNT 3.18 x10^6/uL (3.82-5.3); RED CELL DISTRIBUTION WIDTH 16.6 % (9.6-15.2)
[2020-09-21 05:44] LABS: INTERNATIONAL NORMALIZED RATIO 1.63 (0.93-1.1); PROTHROMBIN TIME 17.3 Seconds (9.6-11.5)
[2020-09-21 05:52] LABS: CHLORIDE 108 mmol/L (98-107)
[2020-09-21 05:57] LABS: ALANINE AMINOTRANSFERASE 53 U/L (12-78); ALBUMIN 1.9 g/dL (3.4-5.0); ALKALINE PHOSPHATASE 341 U/L (45-117); ANION GAP 13 mmol/L (5-15); BILIRUBIN,TOTAL 8.9 mg/dL (0.2-1.0); CALCIUM 8.1 mg/dL (8.5-10.1); CREATININE 0.56 mg/dL (0.55-1.02)
[2020-09-21 06:09] LABS: MD YES
[2020-09-21 06:10] LABS: <PLATELET ESTIMATE> ADEQUATE; <PLT MORPHOLOGY> NORMAL PLT MORPH; ANISOCYTOSIS 1+; BASOS#(MANUAL) 0.51 x10^3/uL (0-0.1); BASOS% (MANUAL) 2 % (0-1); EOS#(MANUAL) 0.51 x10^3/uL (0.0-0.4); EOS% (MANUAL) 2 % (1-7); LYMPH#(MANUAL) 1.02 x10^3/uL (1-3.4); LYMPHS% (MANUAL) 4 % (22-44); MONOS#(MANUAL) 1.52 x10^3/uL (0.3-2.7); MONOS% (MANUAL) 6 % (2-9); POLYCHROMASIA 1+; SEG#(MANUAL) 21.84 x10^3/uL (1.8-6.8); SEGS% (MANUAL) 86 % (42-75)
[2020-09-21 06:11] LABS: TARGET CELLS 1+
[2020-09-21] MEDS: POTASSIUM CHLORIDE 20 MEQ TAB.ER.PRT PO SCH (08:00)
[2020-09-21] MEDS: LISINOPRIL 10 MG TABLET PO SCH ×2 (08:48→08:52)
[2020-09-21] MEDS: LACTULOSE 20 GM/30 ML UDC PO SCH ×2 (08:48→21:20)
[2020-09-21] MEDS: SENNA/DOCUSATE TABLET PO SCH (08:48)
[2020-09-21] MEDS: SERTRALINE 50MG TABLET PO SCH (08:52)
[2020-09-21] MEDS: DOXYCYCLINE 100MG TABLET PO SCH ×2 (08:53→21:20)
[2020-09-21] MEDS ORDERED: LORazepam 2 MG/ML, 1ML IVPush ONE (10:30)
[2020-09-21 15:48] LABS: INTERNATIONAL NORMALIZED RATIO 1.57 (0.93-1.1); PROTHROMBIN TIME 16.7 Seconds (9.6-11.5)
[2020-09-21] MEDS ORDERED: LIDOCAINE 1%, 10ML ONE (15:59)
[2020-09-21] MEDS ORDERED: POTASSIUM CHLORIDE 40 MEQ in SODIUM CHLORIDE 0.9% 500 ML IV ONE (16:00)
[2020-09-21] MEDS ORDERED: FENTANYL PF 100 MCG/2ML ONE (16:14)
[2020-09-21] MEDS ORDERED: MIDAZOLAM 1 MG/ML, 5ML ONE (16:14)
[2020-09-21] MEDS ORDERED: FLUMAZENIL 0.1 MG/1 ML, 5ML ONE (16:14)
[2020-09-21] MEDS ORDERED: NALOXONE 1 MG/ML, 2ML ONE (16:14)
[2020-09-21] MEDS: CHLORDIAZEPOXIDE 10 MG CAPSULE PO SCH ×2 (17:30→21:20)
[2020-09-21] MEDS ORDERED: LORazepam 0.5MG TABLET PO PRN (17:30)
[2020-09-22 01:02] VITALS: BP 111/80
[2020-09-22] MEDS: PIPERACILLIN/TAZO/PMX 3.375GM 50 ML IV SCH ×3 (04:06→20:01)
[2020-09-22 05:39] LABS: MEAN CORPUSCULAR HEMOGLOBIN 35.1 pg (27.0-34.8); MEAN CORPUSCULAR HGB CONC 33.6 g/dL (32.4-35.8); MEAN PLATELET VOLUME 7.4 fL (7.4-10.4); PLATELET COUNT 298 x10^3/uL (130-400); RED CELL DISTRIBUTION WIDTH 16.8 % (9.6-15.2)
[2020-09-22] MEDS: PANTOPRAZOLE 40MG TABLET PO SCH (05:46)
[2020-09-22 06:06] LABS: ALBUMIN 1.7 g/dL (3.4-5.0); ANION GAP 7 mmol/L (5-15); CHLORIDE 115 mmol/L (98-107); MD YES
[2020-09-22 06:07] LABS: BAND#(MANUAL) 0.47 x10^3/uL; BANDS%(MANUAL) 2 % (0-7); EOS#(MANUAL) 0.47 x10^3/uL (0.0-0.4); EOS% (MANUAL) 2 % (1-7); LYMPH#(MANUAL) 2.82 x10^3/uL (1-3.4); LYMPHS% (MANUAL) 12 % (22-44); MONOS#(MANUAL) 1.18 x10^3/uL (0.3-2.7); MONOS% (MANUAL) 5 % (2-9); SEG#(MANUAL) 18.57 x10^3/uL (1.8-6.8); SEGS% (MANUAL) 79 % (42-75)
[2020-09-22 06:08] LABS: <PLATELET ESTIMATE> ADEQUATE; <PLT MORPHOLOGY> NORMAL PLT MORPH; ANISOCYTOSIS 1+; POLYCHROMASIA 1+; TARGET CELLS 1+
[2020-09-22 06:15] LABS: ALANINE AMINOTRANSFERASE 46 U/L (12-78); ALKALINE PHOSPHATASE 293 U/L (45-117); BILIRUBIN,TOTAL 7.8 mg/dL (0.2-1.0); CREATININE 0.49 mg/dL (0.55-1.02); TOTAL PROTEIN 5.3 g/dL (6.4-8.2)
[2020-09-22 07:19] VITALS: BP 109/72
[2020-09-22] MEDS: CHLORDIAZEPOXIDE 10 MG CAPSULE PO SCH ×4 (09:00→20:57)
[2020-09-22] MEDS ORDERED: LORazepam 1MG TABLET PO PRN (09:30)
[2020-09-22] MEDS: SERTRALINE 50MG TABLET PO SCH (10:00)
[2020-09-22] MEDS: LACTULOSE 20 GM/30 ML UDC PO SCH ×2 (10:00→20:57)
[2020-09-22] MEDS: DOXYCYCLINE 100MG TABLET PO SCH ×2 (10:00→20:57)
[2020-09-22 12:54] VITALS: BP 108/74
[2020-09-22] MEDS: LACTOBACILLUS CHEW TABLET PO SCH ×2 (16:19→20:56)
[2020-09-22] MEDS: FUROSEMIDE 20 MG TABLET PO SCH (16:19)
[2020-09-22 19:48] VITALS: BP 110/70
[2020-09-22] MEDS: SPIRONOLACTONE 50 MG TABLET PO SCH (21:00)
[2020-09-23 01:43] VITALS: BP 108/72
[2020-09-23] MEDS: PIPERACILLIN/TAZO/PMX 3.375GM 50 ML IV SCH ×3 (03:46→20:45)
[2020-09-23 07:45] VITALS: BP 116/77
[2020-09-23] MEDS: SPIRONOLACTONE 50 MG TABLET PO SCH ×2 (08:17→20:44)
[2020-09-23] MEDS: FUROSEMIDE 20 MG TABLET PO SCH ×2 (08:17→17:02)
[2020-09-23] MEDS: PANTOPRAZOLE 40MG TABLET PO SCH (08:17)
[2020-09-23] MEDS: SERTRALINE 50MG TABLET PO SCH (08:17)
[2020-09-23] MEDS: DOXYCYCLINE 100MG TABLET PO SCH ×2 (08:18→20:44)
[2020-09-23] MEDS: LACTOBACILLUS CHEW TABLET PO SCH ×3 (08:18→20:44)
[2020-09-23] MEDS: LACTULOSE 20 GM/30 ML UDC PO SCH ×2 (08:18→20:46)
[2020-09-23 08:59] LABS: MEAN CORPUSCULAR HEMOGLOBIN 35.3 pg (27.0-34.8); MEAN CORPUSCULAR HGB CONC 33.8 g/dL (32.4-35.8); MEAN PLATELET VOLUME 7.1 fL (7.4-10.4); PLATELET COUNT 288 x10^3/uL (130-400); RED BLOOD COUNT 3.03 x10^6/uL (3.82-5.3); RED CELL DISTRIBUTION WIDTH 16.7 % (9.6-15.2)
[2020-09-23] MEDS ORDERED: LACTULOSE 20 GM/30 ML UDC PO SCH (09:00)
[2020-09-23 09:08] LABS: ALBUMIN 1.6 g/dL (3.4-5.0); ANION GAP 8 mmol/L (5-15); CALCIUM 7.8 mg/dL (8.5-10.1); CHLORIDE 111 mmol/L (98-107)
[2020-09-23 09:12] LABS: ALANINE AMINOTRANSFERASE 45 U/L (12-78); ALKALINE PHOSPHATASE 302 U/L (45-117); BILIRUBIN,TOTAL 7.3 mg/dL (0.2-1.0); CREATININE 0.61 mg/dL (0.55-1.02); TOTAL PROTEIN 5.5 g/dL (6.4-8.2)
[2020-09-23] MEDS: ONDANSETRON ODT 4 MG PO PRN (09:22)
[2020-09-23 09:31] LABS: MD YES
[2020-09-23 09:33] LABS: BAND#(MANUAL) 0.23 x10^3/uL; BANDS%(MANUAL) 1 % (0-7); EOS#(MANUAL) 0.68 x10^3/uL (0.0-0.4); EOS% (MANUAL) 3 % (1-7); LYMPH#(MANUAL) 1.82 x10^3/uL (1-3.4); LYMPHS% (MANUAL) 8 % (22-44); MONOS#(MANUAL) 1.37 x10^3/uL (0.3-2.7); MONOS% (MANUAL) 6 % (2-9); SEGS% (MANUAL) 82 % (42-75)
[2020-09-23 09:34] LABS: <PLATELET ESTIMATE> ADEQUATE; <PLT MORPHOLOGY> NORMAL PLT MORPH; ANISOCYTOSIS 1+; POLYCHROMASIA 1+; TARGET CELLS 1+
[2020-09-23 14:25] VITALS: BP 111/72
[2020-09-23 20:12] VITALS: BP 102/65
[2020-09-24 01:18] VITALS: BP 110/71
[2020-09-24] MEDS: PIPERACILLIN/TAZO/PMX 3.375GM 50 ML IV SCH ×3 (04:20→20:38)
[2020-09-24 07:42] VITALS: BP 100/64
[2020-09-24] MEDS: SPIRONOLACTONE 50 MG TABLET PO SCH ×2 (08:03→20:39)
[2020-09-24] MEDS: SERTRALINE 50MG TABLET PO SCH (08:03)
[2020-09-24] MEDS: DOXYCYCLINE 100MG TABLET PO SCH (08:03)
[2020-09-24] MEDS: FUROSEMIDE 20 MG TABLET PO SCH ×2 (08:03→15:57)
[2020-09-24] MEDS: LACTOBACILLUS CHEW TABLET PO SCH ×3 (08:03→20:39)
[2020-09-24] MEDS: LACTULOSE 20 GM/30 ML UDC PO SCH ×2 (08:03→20:39)
[2020-09-24] MEDS: PANTOPRAZOLE 40MG TABLET PO SCH (08:03)
[2020-09-24 09:31] LABS: BASOPHILS % (AUTO) 1 % (0-1); EOSINOPHILS % (AUTO) 2 % (1-7); LYMPHOCYTES % (AUTO) 11 % (22-44); MEAN CORPUSCULAR HEMOGLOBIN 34.7 pg (27.0-34.8); MEAN PLATELET VOLUME 7.1 fL (7.4-10.4); MONOCYTES % (AUTO) 6 % (2-9); NEUTROPHILS % (AUTO) 80 % (42-75); PLATELET COUNT 256 x10^3/uL (130-400); RED BLOOD COUNT 3.11 x10^6/uL (3.82-5.3); RED CELL DISTRIBUTION WIDTH 16.7 % (9.6-15.2)
[2020-09-24 09:34] LABS: MD NO
[2020-09-24 09:43] LABS: ALANINE AMINOTRANSFERASE 48 U/L (12-78); ALBUMIN 1.5 g/dL (3.4-5.0); ANION GAP 8 mmol/L (5-15); CALCIUM 8.1 mg/dL (8.5-10.1); CHLORIDE 109 mmol/L (98-107); CREATININE 0.69 mg/dL (0.55-1.02)
[2020-09-24 09:46] LABS: ALKALINE PHOSPHATASE 274 U/L (45-117); BILIRUBIN,TOTAL 8.2 mg/dL (0.2-1.0); TOTAL PROTEIN 5.4 g/dL (6.4-8.2)
[2020-09-24 12:50] VITALS: BP 144/75
[2020-09-24 19:31] VITALS: BP 97/64
[2020-09-25 02:08] VITALS: BP 99/63
[2020-09-25] MEDS: PIPERACILLIN/TAZO/PMX 3.375GM 50 ML IV SCH ×3 (04:23→19:56)
[2020-09-25 05:44] LABS: MEAN CORPUSCULAR HEMOGLOBIN 34.5 pg (27.0-34.8); MEAN CORPUSCULAR HGB CONC 33.6 g/dL (32.4-35.8); MEAN PLATELET VOLUME 7.4 fL (7.4-10.4); PLATELET COUNT 213 x10^3/uL (130-400); RED BLOOD COUNT 2.92 x10^6/uL (3.82-5.3); RED CELL DISTRIBUTION WIDTH 16.6 % (9.6-15.2)
[2020-09-25 05:57] LABS: ANION GAP 8 mmol/L (5-15); CALCIUM 7.7 mg/dL (8.5-10.1); CHLORIDE 104 mmol/L (98-107); CREATININE 0.58 mg/dL (0.55-1.02)
[2020-09-25 06:15] LABS: MD YES
[2020-09-25 06:16] LABS: ANISOCYTOSIS 1+; BAND#(MANUAL) 0.23 x10^3/uL; BANDS%(MANUAL) 1 % (0-7); EOS#(MANUAL) 1.38 x10^3/uL (0.0-0.4); EOS% (MANUAL) 6 % (1-7); LYMPH#(MANUAL) 1.15 x10^3/uL (1-3.4); LYMPHS% (MANUAL) 5 % (22-44); MONOS#(MANUAL) 1.38 x10^3/uL (0.3-2.7); MONOS% (MANUAL) 6 % (2-9); POLYCHROMASIA 1+; SEG#(MANUAL) 18.86 x10^3/uL (1.8-6.8); SEGS% (MANUAL) 82 % (42-75)
[2020-09-25 06:17] LABS: <PLATELET ESTIMATE> ADEQUATE; <PLT MORPHOLOGY> NORMAL PLT MORPH; TARGET CELLS 1+
[2020-09-25 06:55] VITALS: BP 99/65
[2020-09-25] MEDS ORDERED: POTASSIUM CHLORIDE 20 MEQ TAB.ER.PRT PO ONE (08:00)
[2020-09-25] MEDS: LACTOBACILLUS CHEW TABLET PO SCH ×3 (08:18→19:56)
[2020-09-25] MEDS: LACTULOSE 20 GM/30 ML UDC PO SCH ×2 (08:18→19:56)
[2020-09-25] MEDS: PANTOPRAZOLE 40MG TABLET PO SCH (08:18)
[2020-09-25] MEDS: SPIRONOLACTONE 100 MG TABLET PO SCH ×2 (08:18→19:56)
[2020-09-25] MEDS: FUROSEMIDE 20 MG TABLET PO SCH ×2 (08:19→17:09)
[2020-09-25] MEDS: SERTRALINE 50MG TABLET PO SCH (08:19)
[2020-09-25 12:03] VITALS: BP 111/72
[2020-09-25] MEDS ORDERED: MAGNESIUM SULFATE PMX 4GM/100M 100 ML IVPB ONE (17:30)
[2020-09-25] MEDS: THIAMINE 100MG TABLET PO SCH (19:56)
[2020-09-25 20:00] VITALS: BP 112/68
[2020-09-26 02:00] VITALS: BP 118/64
[2020-09-26] MEDS: PIPERACILLIN/TAZO/PMX 3.375GM 50 ML IV SCH ×3 (04:00→20:53)
[2020-09-26 06:07] LABS: MEAN CORPUSCULAR HEMOGLOBIN 34.8 pg (27.0-34.8); MEAN PLATELET VOLUME 7.6 fL (7.4-10.4); PLATELET COUNT 229 x10^3/uL (130-400); RED BLOOD COUNT 3.01 x10^6/uL (3.82-5.3); RED CELL DISTRIBUTION WIDTH 16.6 % (9.6-15.2)
[2020-09-26 06:16] LABS: ALANINE AMINOTRANSFERASE 37 U/L (12-78); ALBUMIN 1.4 g/dL (3.4-5.0); ANION GAP 6 mmol/L (5-15); CHLORIDE 101 mmol/L (98-107)
[2020-09-26 06:19] LABS: ALKALINE PHOSPHATASE 249 U/L (45-117); BILIRUBIN,TOTAL 9.5 mg/dL (0.2-1.0); CREATININE 0.58 mg/dL (0.55-1.02); TOTAL PROTEIN 5.3 g/dL (6.4-8.2)
[2020-09-26 06:39] LABS: BAND#(MANUAL) 0.25 x10^3/uL; BANDS%(MANUAL) 1 % (0-7); MD YES; MONOS#(MANUAL) 1.26 x10^3/uL (0.3-2.7); MONOS% (MANUAL) 5 % (2-9)
[2020-09-26 06:40] LABS: ANISOCYTOSIS 1+; EOS% (MANUAL) 2 % (1-7); LYMPH#(MANUAL) 2.26 x10^3/uL (1-3.4); LYMPHS% (MANUAL) 9 % (22-44); POLYCHROMASIA 1+; SEG#(MANUAL) 20.83 x10^3/uL (1.8-6.8); SEGS% (MANUAL) 83 % (42-75); TARGET CELLS 1+
[2020-09-26 06:41] LABS: <PLATELET ESTIMATE> ADEQUATE; <PLT MORPHOLOGY> NORMAL PLT MORPH
[2020-09-26 06:51] VITALS: BP 117/77
[2020-09-26] MEDS: FOLIC ACID 1 MG TABLET PO SCH (08:57)
[2020-09-26] MEDS: THIAMINE 100MG TABLET PO SCH ×2 (08:57→20:54)
[2020-09-26] MEDS: LACTULOSE 20 GM/30 ML UDC PO SCH (08:57)
[2020-09-26] MEDS: LACTOBACILLUS CHEW TABLET PO SCH ×3 (08:57→20:53)
[2020-09-26] MEDS: PANTOPRAZOLE 40MG TABLET PO SCH (08:58)
[2020-09-26] MEDS: MULTIVITAMINS/MINERALS TABLET PO SCH (08:58)
[2020-09-26] MEDS: SPIRONOLACTONE 100 MG TABLET PO SCH ×2 (08:58→20:54)
[2020-09-26] MEDS: SERTRALINE 50MG TABLET PO SCH (09:00)
[2020-09-26] MEDS: FUROSEMIDE 20 MG TABLET PO SCH ×2 (10:24→16:35)
[2020-09-26] MEDS: POTASSIUM CHLORIDE 20 MEQ TAB.ER.PRT PO SCH ×2 (10:25→16:35)
[2020-09-26 12:05] VITALS: BP 111/75
[2020-09-26] MEDS ORDERED: VISIPAQUE 270 MG/ML, 50ML BOTTLE ONE (12:45)
[2020-09-26 19:36] VITALS: BP 120/82
[2020-09-27 01:02] LABS: CLOSTRIDIUM DIFFICILE ANTIGEN NEGATIVE; CLOSTRIDIUM DIFFICILE TOXIN NEGATIVE (Negative)
[2020-09-27 01:56] VITALS: BP 106/69
[2020-09-27] MEDS: PIPERACILLIN/TAZO/PMX 3.375GM 50 ML IV SCH ×3 (03:20→19:59)
[2020-09-27 05:06] LABS: MEAN CORPUSCULAR HGB CONC 33.8 g/dL (32.4-35.8); MEAN PLATELET VOLUME 7.5 fL (7.4-10.4); PLATELET COUNT 228 x10^3/uL (130-400); RED BLOOD COUNT 3.05 x10^6/uL (3.82-5.3); RED CELL DISTRIBUTION WIDTH 15.8 % (9.6-15.2)
[2020-09-27 05:15] LABS: ANION GAP 7 mmol/L (5-15); CALCIUM 7.6 mg/dL (8.5-10.1); CHLORIDE 102 mmol/L (98-107); CREATININE 0.53 mg/dL (0.55-1.02)
[2020-09-27 05:45] LABS: MD YES
[2020-09-27 05:46] LABS: ANISOCYTOSIS 1+; BAND#(MANUAL) 0.24 x10^3/uL; BANDS%(MANUAL) 1 % (0-7); EOS#(MANUAL) 0.24 x10^3/uL (0.0-0.4); EOS% (MANUAL) 1 % (1-7); LYMPH#(MANUAL) 1.44 x10^3/uL (1-3.4); LYMPHS% (MANUAL) 6 % (22-44); MONOS#(MANUAL) 1.44 x10^3/uL (0.3-2.7); MONOS% (MANUAL) 6 % (2-9); POLYCHROMASIA 1+; SEG#(MANUAL) 20.64 x10^3/uL (1.8-6.8); SEGS% (MANUAL) 86 % (42-75)
[2020-09-27 05:47] LABS: TARGET CELLS 1+
[2020-09-27 05:49] LABS: <PLATELET ESTIMATE> ADEQUATE; <PLT MORPHOLOGY> NORMAL PLT MORPH
[2020-09-27 07:20] VITALS: BP 119/75
[2020-09-27] MEDS: THIAMINE 100MG TABLET PO SCH ×2 (08:21→19:59)
[2020-09-27] MEDS: PANTOPRAZOLE 40MG TABLET PO SCH (08:21)
[2020-09-27] MEDS: FUROSEMIDE 20 MG TABLET PO SCH ×2 (08:21→16:40)
[2020-09-27] MEDS: LACTOBACILLUS CHEW TABLET PO SCH ×3 (08:21→19:59)
[2020-09-27] MEDS: MULTIVITAMINS/MINERALS TABLET PO SCH (08:21)
[2020-09-27] MEDS: FOLIC ACID 1 MG TABLET PO SCH (08:21)
[2020-09-27] MEDS: SPIRONOLACTONE 100 MG TABLET PO SCH ×2 (08:21→19:59)
[2020-09-27] MEDS: SERTRALINE 50MG TABLET PO SCH (08:21)
[2020-09-27] MEDS: LACTULOSE 20 GM/30 ML UDC PO SCH (08:22)
[2020-09-27 13:45] VITALS: BP 114/45
[2020-09-27 20:34] VITALS: BP 120/80
[2020-09-28 01:41] VITALS: BP 119/73
[2020-09-28] MEDS: PIPERACILLIN/TAZO/PMX 3.375GM 50 ML IV SCH ×3 (04:00→20:04)
[2020-09-28 05:50] LABS: MEAN CORPUSCULAR HEMOGLOBIN 34.8 pg (27.0-34.8); MEAN CORPUSCULAR HGB CONC 33.8 g/dL (32.4-35.8); MEAN PLATELET VOLUME 7.7 fL (7.4-10.4); PLATELET COUNT 213 x10^3/uL (130-400); RED BLOOD COUNT 3.07 x10^6/uL (3.82-5.3); RED CELL DISTRIBUTION WIDTH 16.4 % (9.6-15.2)
[2020-09-28 05:59] LABS: HCT (SEDRATE) 31.6 % (34.6-47.8)
[2020-09-28 06:00] LABS: ANION GAP 7 mmol/L (5-15); CALCIUM 7.8 mg/dL (8.5-10.1); CHLORIDE 101 mmol/L (98-107)
[2020-09-28 06:11] LABS: CREATININE 0.49 mg/dL (0.55-1.02)
[2020-09-28 06:26] LABS: MD YES
[2020-09-28 06:29] LABS: EOS#(MANUAL) 1.21 x10^3/uL (0.0-0.4); EOS% (MANUAL) 5 % (1-7); LYMPH#(MANUAL) 1.21 x10^3/uL (1-3.4); LYMPHS% (MANUAL) 5 % (22-44); MONOS#(MANUAL) 0.73 x10^3/uL (0.3-2.7); MONOS% (MANUAL) 3 % (2-9); SEG#(MANUAL) 21.05 x10^3/uL (1.8-6.8); SEGS% (MANUAL) 87 % (42-75)
[2020-09-28 06:30] LABS: <PLATELET ESTIMATE> ADEQUATE; <PLT MORPHOLOGY> NORMAL PLT MORPH; ANISOCYTOSIS 1+; POLYCHROMASIA 1+; TARGET CELLS 1+
[2020-09-28 07:21] VITALS: BP 114/73
[2020-09-28] MEDS: FUROSEMIDE 20 MG TABLET PO SCH ×2 (08:00→16:30)
[2020-09-28] MEDS: THIAMINE 100MG TABLET PO SCH ×2 (09:59→20:04)
[2020-09-28] MEDS: SPIRONOLACTONE 100 MG TABLET PO SCH ×2 (09:59→20:04)
[2020-09-28] MEDS: LACTOBACILLUS CHEW TABLET PO SCH ×3 (09:59→20:04)
[2020-09-28] MEDS: FOLIC ACID 1 MG TABLET PO SCH (09:59)
[2020-09-28] MEDS: MULTIVITAMINS/MINERALS TABLET PO SCH (09:59)
[2020-09-28] MEDS: LACTULOSE 20 GM/30 ML UDC PO SCH (10:00)
[2020-09-28] MEDS: SERTRALINE 50MG TABLET PO SCH (10:00)
[2020-09-28] MEDS: PANTOPRAZOLE 40MG TABLET PO SCH (10:00)
[2020-09-28] MEDS ORDERED: LIDOCAINE 1%, 10ML ONE ×2 (10:52→11:50)
[2020-09-28 12:39] VITALS: BP 117/77
[2020-09-28 19:46] VITALS: BP 115/77
[2020-09-29 01:11] VITALS: BP 119/79
[2020-09-29] MEDS: PIPERACILLIN/TAZO/PMX 3.375GM 50 ML IV SCH ×3 (02:37→21:00)
[2020-09-29 06:02] LABS: MEAN CORPUSCULAR HEMOGLOBIN 34.2 pg (27.0-34.8); MEAN CORPUSCULAR HGB CONC 33.6 g/dL (32.4-35.8); MEAN PLATELET VOLUME 8.1 fL (7.4-10.4); PLATELET COUNT 212 x10^3/uL (130-400); RED BLOOD COUNT 3.12 x10^6/uL (3.82-5.3); RED CELL DISTRIBUTION WIDTH 16.3 % (9.6-15.2)
[2020-09-29 06:14] LABS: ANION GAP 9 mmol/L (5-15); CALCIUM 7.9 mg/dL (8.5-10.1); CHLORIDE 97 mmol/L (98-107)
[2020-09-29 06:17] LABS: CREATININE 0.63 mg/dL (0.55-1.02)
[2020-09-29 06:31] LABS: MD YES
[2020-09-29 06:32] LABS: BAND#(MANUAL) 0.25 x10^3/uL; BANDS%(MANUAL) 1 % (0-7); EOS#(MANUAL) 0.75 x10^3/uL (0.0-0.4); EOS% (MANUAL) 3 % (1-7); LYMPH#(MANUAL) 1.49 x10^3/uL (1-3.4); LYMPHS% (MANUAL) 6 % (22-44); MONOS#(MANUAL) 1.25 x10^3/uL (0.3-2.7); MONOS% (MANUAL) 5 % (2-9); SEG#(MANUAL) 21.17 x10^3/uL (1.8-6.8); SEGS% (MANUAL) 85 % (42-75)
[2020-09-29 06:33] LABS: <PLATELET ESTIMATE> ADEQUATE; ANISOCYTOSIS 1+; POLYCHROMASIA 1+; TARGET CELLS 1+
[2020-09-29 06:34] LABS: <PLT MORPHOLOGY> NORMAL PLT MORPH
[2020-09-29 07:48] VITALS: BP 116/75
[2020-09-29] MEDS: LACTOBACILLUS CHEW TABLET PO SCH ×3 (09:06→19:34)
[2020-09-29] MEDS: LACTULOSE 20 GM/30 ML UDC PO SCH (09:06)
[2020-09-29] MEDS: FOLIC ACID 1 MG TABLET PO SCH (09:06)
[2020-09-29] MEDS: SPIRONOLACTONE 100 MG TABLET PO SCH ×2 (09:06→19:34)
[2020-09-29] MEDS: SERTRALINE 50MG TABLET PO SCH (09:06)
[2020-09-29] MEDS: MULTIVITAMINS/MINERALS TABLET PO SCH (09:07)
[2020-09-29] MEDS: THIAMINE 100MG TABLET PO SCH ×2 (09:07→19:34)
[2020-09-29] MEDS: FUROSEMIDE 20 MG TABLET PO SCH ×2 (09:08→17:06)
[2020-09-29] MEDS: PANTOPRAZOLE 40MG TABLET PO SCH (09:08)
[2020-09-29 12:39] VITALS: BP 119/82
[2020-09-29 20:22] VITALS: BP 121/81
[2020-09-30 00:05] VITALS: BP 115/77
[2020-09-30] MEDS: PIPERACILLIN/TAZO/PMX 3.375GM 50 ML IV SCH ×2 (04:00→12:17)
[2020-09-30 04:30] LABS: MEAN CORPUSCULAR HEMOGLOBIN 34.6 pg (27.0-34.8); MEAN CORPUSCULAR HGB CONC 33.9 g/dL (32.4-35.8); MEAN PLATELET VOLUME 7.8 fL (7.4-10.4); PLATELET COUNT 205 x10^3/uL (130-400); RED BLOOD COUNT 3.15 x10^6/uL (3.82-5.3)
[2020-09-30 04:35] LABS: MD YES
[2020-09-30 04:44] LABS: ALBUMIN 1.5 g/dL (3.4-5.0); ANION GAP 8 mmol/L (5-15); CALCIUM 8.5 mg/dL (8.5-10.1); CHLORIDE 95 mmol/L (98-107)
[2020-09-30 04:49] LABS: ALANINE AMINOTRANSFERASE 55 U/L (12-78); ALKALINE PHOSPHATASE 255 U/L (45-117); BILIRUBIN,TOTAL 10.1 mg/dL (0.2-1.0); TOTAL PROTEIN 6.3 g/dL (6.4-8.2)
[2020-09-30 05:24] LABS: ANISOCYTOSIS 1+; BAND#(MANUAL) 0.26 x10^3/uL; BANDS%(MANUAL) 1 % (0-7); EOS#(MANUAL) 0.26 x10^3/uL (0.0-0.4); EOS% (MANUAL) 1 % (1-7); LYMPH#(MANUAL) 1.05 x10^3/uL (1-3.4); LYMPHS% (MANUAL) 4 % (22-44); MONOS#(MANUAL) 2.63 x10^3/uL (0.3-2.7); MONOS% (MANUAL) 10 % (2-9); POLYCHROMASIA 1+; SEG#(MANUAL) 22.09 x10^3/uL (1.8-6.8); SEGS% (MANUAL) 84 % (42-75); TARGET CELLS 1+
[2020-09-30 05:25] LABS: <PLATELET ESTIMATE> ADEQUATE; <PLT MORPHOLOGY> NORMAL PLT MORPH; PMNS WITH VACUOLES 1+; TOXIC GRAN 1+
[2020-09-30 06:44] VITALS: BP 113/77
[2020-09-30] MEDS: LACTULOSE 20 GM/30 ML UDC PO SCH (08:18)
[2020-09-30] MEDS: THIAMINE 100MG TABLET PO SCH ×2 (08:19→21:02)
[2020-09-30] MEDS: PANTOPRAZOLE 40MG TABLET PO SCH (08:19)
[2020-09-30] MEDS: LACTOBACILLUS CHEW TABLET PO SCH ×3 (08:19→21:02)
[2020-09-30] MEDS: SERTRALINE 50MG TABLET PO SCH (08:19)
[2020-09-30] MEDS: FOLIC ACID 1 MG TABLET PO SCH (08:19)
[2020-09-30] MEDS: MULTIVITAMINS/MINERALS TABLET PO SCH (08:19)
[2020-09-30] MEDS: SPIRONOLACTONE 100 MG TABLET PO SCH ×2 (08:19→21:03)
[2020-09-30] MEDS: FUROSEMIDE 20 MG TABLET PO SCH ×2 (08:19→16:34)
[2020-09-30 12:08] VITALS: BP 120/82
[2020-09-30] MEDS ORDERED: PIPERACILLIN/TAZO/PMX 3.375GM 50 ML IV SCH (19:00)
[2020-09-30 20:07] VITALS: BP 111/72
[2020-09-30] MEDS: CEFDINIR 300 MG CAPSULE PO SCH (21:02)
[2020-10-01 03:52] VITALS: BP 123/79
[2020-10-01 04:42] LABS: BASOPHILS % (AUTO) 1 % (0-1); EOSINOPHILS % (AUTO) 2 % (1-7); LYMPHOCYTES % (AUTO) 9 % (22-44); MEAN CORPUSCULAR HEMOGLOBIN 34.7 pg (27.0-34.8); MEAN CORPUSCULAR HGB CONC 34.1 g/dL (32.4-35.8); MEAN PLATELET VOLUME 7.9 fL (7.4-10.4); MONOCYTES % (AUTO) 8 % (2-9); NEUTROPHILS % (AUTO) 81 % (42-75); PLATELET COUNT 190 x10^3/uL (130-400); RED BLOOD COUNT 3.13 x10^6/uL (3.82-5.3); RED CELL DISTRIBUTION WIDTH 16.8 % (9.6-15.2)
[2020-10-01 04:47] LABS: ALANINE AMINOTRANSFERASE 63 U/L (12-78); ALBUMIN 1.5 g/dL (3.4-5.0); ANION GAP 8 mmol/L (5-15); CALCIUM 8.1 mg/dL (8.5-10.1); CHLORIDE 93 mmol/L (98-107); CREATININE 0.87 mg/dL (0.55-1.02)
[2020-10-01 04:50] LABS: ALKALINE PHOSPHATASE 242 U/L (45-117); TOTAL PROTEIN 6.4 g/dL (6.4-8.2)
[2020-10-01 06:27] LABS: MD MORPH REVIEW ONLY
[2020-10-01 06:28] LABS: ANISOCYTOSIS 1+; POLYCHROMASIA 1+; TARGET CELLS 1+
[2020-10-01 06:29] LABS: PMNS WITH VACUOLES 1+
[2020-10-01 06:30] LABS: <PLATELET ESTIMATE> ADEQUATE; <PLT MORPHOLOGY> NORMAL PLT MORPH
[2020-10-01 08:06] VITALS: BP 122/80
[2020-10-01] MEDS ORDERED: CEFDINIR 300 MG CAPSULE PO SCH (09:00)
[2020-10-01] MEDS ORDERED: SPIR100T PO (09:22)
[2020-10-01] MEDS ORDERED: FURO20TA3 PO (09:22)
[2020-10-01] MEDS ORDERED: TRAM50TA2 PO (09:22)
[2020-10-01] MEDS ORDERED: CEFD300C37 PO (09:22)
[2020-10-01] MEDS: MULTIVITAMINS/MINERALS TABLET PO SCH (09:25)
[2020-10-01] MEDS: THIAMINE 100MG TABLET PO SCH (09:26)
[2020-10-01] MEDS: SPIRONOLACTONE 100 MG TABLET PO SCH (09:26)
[2020-10-01] MEDS: FOLIC ACID 1 MG TABLET PO SCH (09:26)
[2020-10-01] MEDS: FUROSEMIDE 20 MG TABLET PO SCH (09:26)
[2020-10-01] MEDS: LACTOBACILLUS CHEW TABLET PO SCH (09:26)
[2020-10-01] MEDS: PANTOPRAZOLE 40MG TABLET PO SCH (09:26)
[2020-10-01] MEDS: CEFDINIR 300 MG CAPSULE PO SCH (09:26)
[2020-10-01] MEDS: SERTRALINE 50MG TABLET PO SCH (09:27)
[2020-10-01] MEDS: LACTULOSE 20 GM/30 ML UDC PO SCH (09:27)
[2020-10-01 13:23] VITALS: BP 122/78
== END 2020-10-01 15:56 | disposition home or self-care (01) | DRG 720 ==
LOC: ED 15:45 → EDIP 17:07 → 3N 18:39 → 4WST 09-21 18:11 → DCLOUNGE 10-01 15:50
PROVIDERS: ADMIT Family Medicine; ATTEND Family Medicine
PROC: 0W9G3ZZ Drainage of Peritoneal Cavity, Percutaneous Approach (ICD-10-PCS; 2020-09-12)
PROC: 0W9G3ZZ Drainage of Peritoneal Cavity, Percutaneous Approach (ICD-10-PCS; 2020-09-17)
PROC: 30233K1 Transfusion of Nonautologous Frozen Plasma into Peripheral Vein, Percutaneous Approach (ICD-10-PCS; principal; 2020-09-21)
PROC: 0W9G3ZZ Drainage of Peritoneal Cavity, Percutaneous Approach (ICD-10-PCS; 2020-09-21)
PROC: 0F9430Z Drainage of Gallbladder with Drainage Device, Percutaneous Approach (ICD-10-PCS; 2020-09-21)
PROC: 0W9G3ZZ Drainage of Peritoneal Cavity, Percutaneous Approach (ICD-10-PCS; 2020-09-28)
DX: A41.9 Sepsis, unspecified organism (principal); D53.9 Nutritional anemia, unspecified; D63.8 Anemia in other chronic diseases classified elsewhere; D68.9 Coagulation defect, unspecified; E83.42 Hypomagnesemia; E83.51 Hypocalcemia; E87.1 Hypo-osmolality and hyponatremia; G93.41 Metabolic encephalopathy; I10 Essential (primary) hypertension; J15.7 Pneumonia due to Mycoplasma pneumoniae; J45.909 Unspecified asthma, uncomplicated; K70.11 Alcoholic hepatitis with ascites; K70.31 Alcoholic cirrhosis of liver with ascites; K70.40 Alcoholic hepatic failure without coma; K76.6 Portal hypertension; K80.01 Calculus of gallbladder with acute cholecystitis with obstruction; N10 Acute pyelonephritis; Z51.5 Encounter for palliative care; Z66 Do not resuscitate; F32.9 Major depressive disorder, single episode, unspecified; F17.210 Nicotine dependence, cigarettes, uncomplicated; F10.231 Alcohol dependence with withdrawal delirium; E87.6 Hypokalemia; D75.89 Other specified diseases of blood and blood-forming organs
CPT/HCPCS: J3490 ×4; 36415; 49083; 49424; 71046; 71260; 74018; 74177; 75989; 76000; 76700; 76942; 78226; 80048; 80053; 81001; 82042; 82140; 82247; 82330; 83540; 83550; 83605; 83615; 83690; 83735; 84100; 84145; 84157; 85025; 85610; 85651; 86140; 86738; 86850; 86900; 87040; 87070; 87086; 87205; 87324; 87449; 89051; 93005; 93306; 93356; 96365; 96366; 99156; 99157; 99285; C1894; G0378; J0295; J0696; J2250; J2543; J3010; J3370; J3480; J7060; P9047; Q0162; Q9966; Q9967; A9537; C1729; J2060; J2310; J3475; J7030; J7040; P9017